=== PATIENT | male | born 1975 | race Caucasian/White ===

== ENCOUNTER 2023-12-26 14:33 | Inpatient (IN) | payer BC ==
[2023-12-26 15:41] VITALS: BMI 23.1
[2023-12-26] MEDS ORDERED: MAGNESIUM HYDROX 2400MG/30ML ORAL SUSPENSION 30 ML CUP PO PRN (17:04)
[2023-12-26] MEDS ORDERED: P-EPHED 60MG/TRIPROLIDI 2.5MG TABLET PO PRN (17:04)
[2023-12-26] MEDS ORDERED: hydrOXYzine PAMOATE 25 MG CAPSULE (FP) PO PRN (17:04)
[2023-12-26] MEDS ORDERED: POLYETHYLENE GLYCOL (HEALTHYLAX) 3350 17 GM PACKET PO PRN (17:04)
[2023-12-26] MEDS ORDERED: IBUPROFEN 400 MG TABLET (FP) PO PRN (17:04)
[2023-12-26] MEDS ORDERED: ACETAMINOPHEN 325 MG TABLET (FP) PO PRN (17:04)
[2023-12-26] MEDS ORDERED: IBUPROFEN 600 MG TABLET (FP) PO PRN (17:04)
[2023-12-26] MEDS ORDERED: BENZOCAINE/MENTHOL (CHLORASEPTIC ) LOZENGE MM PRN (17:04)
[2023-12-26] MEDS ORDERED: guaiFENesin 600 MG TABLET.ER (FP) PO PRN (17:04)
[2023-12-26] MEDS ORDERED: ONDANSETRON *ODT* 4 MG TABLET SL PRN (17:04)
[2023-12-26] MEDS ORDERED: BENZONATATE 200 MG CAPSULE PO PRN (17:04)
[2023-12-26] MEDS ORDERED: NALOXONE HCL (KLOXXADO) 8 MG SPRAY NS PRN (17:04)
[2023-12-26] MEDS ORDERED: DICYCLOMINE HCL 10 MG CAPSULE PO PRN (17:04)
[2023-12-26] MEDS ORDERED: LOPERAMIDE HCL 2 MG CAPSULE PO PRN (17:04)
[2023-12-26] MEDS ORDERED: MAG HYDROX/AL HYDROX/SIMETH 30 ML UNIT-DOSE CUP PO PRN (17:04)
[2023-12-26] MEDS ORDERED: NALOXONE HCL 0.4 MG/ML VIAL IM PRN (17:04)
[2023-12-26] MEDS ORDERED: NICOTINE POLACRILEX 2 MG GUM BUC PRN (17:04)
[2023-12-26] MEDS: THIAMINE HCL 100 MG TABLET (FP) PO SCH (22:22)
[2023-12-26] MEDS: MELATONIN 5 MG TABLETS PO SCH (22:22)
[2023-12-26] MEDS: METHOCARBAMOL 500 MG TABLET PO PRN (22:22)
[2023-12-26] MEDS: BISMUTH SUBSALICYLATE 524 MG/30 ML PO PRN (23:37)
[2023-12-27] MEDS ORDERED: methaDONE HCL 10 MG TABLET (FOR DETOX USE ONLY) PO ONE ×2 (01:00→10:00)
[2023-12-27 10:09] LABS: HEMATOCRIT 36.7 % (35.4-49); HEMOGLOBIN 12.6 GM/dL (11.7-16.9); MCH 33.4 pg (25.7-33.7); MCHC 34.2 g/dl (32.0-35.9); MEAN CELL VOLUME 97.6 fl (80-96); MEAN PLT VOLUME 7.3 fl (7.5-11.1); PLATELET COUNT 441 10^3/uL (134-434); RBC 3.76 M/mm3 (4.00-5.60); RDW 13.6 % (11.9-15.9); WHITE BLOOD COUNT 8.5 K/mm3 (4.0-10.0)
[2023-12-27] MEDS: PRENATAL VITAMINS W/ FOLIC ACID TABLET (FP) PO SCH (10:12)
[2023-12-27] MEDS: METHOCARBAMOL 500 MG TABLET PO PRN ×2 (10:15→22:13)
[2023-12-27 10:33] LABS: POTASSIUM 3.7 mmol/L (3.5-5.1)
[2023-12-27 10:38] LABS: CALCIUM 8.1 mg/dL (8.5-10.1)
[2023-12-27 10:39] LABS: ALBUMIN 3.1 g/dl (3.4-5.0); BLOOD UREA NITROGEN 7.5 mg/dL (7-18)
[2023-12-27 10:42] LABS: CREATININE 0.8 mg/dL (0.55-1.3)
[2023-12-27 10:43] LABS: BILIRUBIN,TOTAL 0.4 mg/dL (0.2-1); TOT PROT 6.5 g/dl (6.4-8.2)
[2023-12-27] MEDS: THIAMINE HCL 100 MG TABLET (FP) PO SCH (22:13)
[2023-12-27] MEDS: MELATONIN 5 MG TABLETS PO SCH (22:13)
[2023-12-28] MEDS: cloNIDine HCL 0.1 MG TABLET PO PRN ×2 (04:05→10:32)
[2023-12-28] MEDS: PRENATAL VITAMINS W/ FOLIC ACID TABLET (FP) PO SCH (10:04)
[2023-12-28] MEDS: SULFAMETHOXAZOLE/TRIMETHOPRIM 800MG/160MG D.S. TABLET PO SCH ×2 (10:04→22:32)
[2023-12-28] MEDS: BACITRACIN 0.9 GM PACKET TP SCH (10:04)
[2023-12-28] MEDS: BISMUTH SUBSALICYLATE 524 MG/30 ML PO PRN (10:07)
[2023-12-28] MEDS: METHOCARBAMOL 500 MG TABLET PO PRN ×2 (10:32→22:32)
[2023-12-28] MEDS: MELATONIN 5 MG TABLETS PO SCH (22:32)
[2023-12-28] MEDS: THIAMINE HCL 100 MG TABLET (FP) PO SCH (22:33)
[2023-12-29] MEDS ORDERED: SIMETHICONE 80 MG TAB.CHEW (FP) PO PRN (09:19)
[2023-12-29] MEDS ORDERED: methaDONE HCL 10 MG TABLET (FOR DETOX USE ONLY) PO ONE ×2 (10:00)
[2023-12-29] MEDS: METHOCARBAMOL 500 MG TABLET PO PRN (10:15)
[2023-12-29] MEDS: SULFAMETHOXAZOLE/TRIMETHOPRIM 800MG/160MG D.S. TABLET PO SCH ×2 (10:15→22:55)
[2023-12-29] MEDS: PRENATAL VITAMINS W/ FOLIC ACID TABLET (FP) PO SCH (10:15)
[2023-12-29] MEDS: BACITRACIN 0.9 GM PACKET TP SCH (10:17)
[2023-12-29] MEDS: cloNIDine HCL 0.1 MG TABLET PO PRN ×2 (10:19→22:56)
[2023-12-29] MEDS: VITAMINS A AND D TOPICAL OINTMENT 60 GM TUBE TP SCH ×4 (12:20→23:39)
[2023-12-29] MEDS ORDERED: guaiFENesin 200 MG/10 ML 10 ML UNIT-DOSE CUPS PO PRN (12:22)
[2023-12-29] MEDS ORDERED: MIRTAZAPINE 15 MG TABLET (FP) PO SCH (22:00)
[2023-12-29] MEDS: THIAMINE HCL 100 MG TABLET (FP) PO SCH (22:55)
[2023-12-29] MEDS: MELATONIN 5 MG TABLETS PO SCH (22:55)
[2023-12-30] MEDS: VITAMINS A AND D TOPICAL OINTMENT 60 GM TUBE TP SCH ×2 (06:07→12:00)
[2023-12-30] MEDS: SULFAMETHOXAZOLE/TRIMETHOPRIM 800MG/160MG D.S. TABLET PO SCH (10:07)
[2023-12-30] MEDS: METHOCARBAMOL 500 MG TABLET PO PRN (10:07)
[2023-12-30] MEDS: PRENATAL VITAMINS W/ FOLIC ACID TABLET (FP) PO SCH (10:07)
[2023-12-30] MEDS: BACITRACIN 0.9 GM PACKET TP SCH (10:08)
[2023-12-30 13:21] VITALS: BP 100/65; PULSE 84; RESP 16; TEMP 98.2
[2023-12-31] MEDS ORDERED: methaDONE HCL 10 MG TABLET (FOR DETOX USE ONLY) PO ONE (10:00)
== END 2023-12-30 14:39 | disposition left against medical advice (07) | DRG 770 ==
LOC: YASAS 14:33 → Y3N 18:04
PROVIDERS: ADMIT Allergy & Immunology; ATTEND Allergy & Immunology
PROC: HZ2ZZZZ Detoxification Services for Substance Abuse Treatment (ICD-10-PCS; principal; 2023-12-27)
DX: F11.23 Opioid dependence with withdrawal (principal); F14.20 Cocaine dependence, uncomplicated; F17.210 Nicotine dependence, cigarettes, uncomplicated; F41.8 Other specified anxiety disorders; G47.00 Insomnia, unspecified; K40.90 Unilateral inguinal hernia, without obstruction or gangrene, not specified as recurrent; S51.002D Unspecified open wound of left elbow, subsequent encounter; X58.XXXD Exposure to other specified factors, subsequent encounter; Z28.310 Unvaccinated for COVID-19; Z28.9 Immunization not carried out for unspecified reason; Z59.02 Unsheltered homelessness
CPT/HCPCS: 36415; 71045-TC-FY; 73070-TC-LT-FY; 80053; 85027; 86780; 87070; 87077; 87205; 87635; 87811; 93005; 93010

== ENCOUNTER 2024-08-11 10:57 | Inpatient (IN) | payer BC ==
[2024-08-11 11:41] VITALS: BMI 25.1
[2024-08-11] MEDS ORDERED: guaiFENesin 600 MG TABLET.ER (FP) PO PRN (14:05)
[2024-08-11] MEDS ORDERED: NICOTINE POLACRILEX 2 MG GUM BUC PRN (14:05)
[2024-08-11] MEDS ORDERED: NALOXONE HCL 0.4 MG/ML VIAL IM PRN (14:05)
[2024-08-11] MEDS ORDERED: ACETAMINOPHEN 325 MG TABLET (FP) PO PRN (14:05)
[2024-08-11] MEDS ORDERED: IBUPROFEN 400 MG TABLET (FP) PO PRN (14:05)
[2024-08-11] MEDS ORDERED: MAG HYDROX/AL HYDROX/SIMETH 30 ML UNIT-DOSE CUP PO PRN (14:05)
[2024-08-11] MEDS ORDERED: NALOXONE (NARCAN) HCL 4 MG/0.1 ML SPRAY NS PRN (14:05)
[2024-08-11] MEDS ORDERED: LOPERAMIDE HCL 2 MG CAPSULE PO PRN (14:05)
[2024-08-11] MEDS ORDERED: BENZOCAINE/MENTHOL (CHLORASEPTIC ) LOZENGE MM PRN (14:05)
[2024-08-11] MEDS ORDERED: IBUPROFEN 600 MG TABLET (FP) PO PRN (14:05)
[2024-08-11] MEDS ORDERED: POLYETHYLENE GLYCOL (HEALTHYLAX) 3350 17 GM PACKET PO PRN (14:05)
[2024-08-11] MEDS ORDERED: BENZONATATE 200 MG CAPSULE PO PRN (14:05)
[2024-08-11] MEDS: MAGNESIUM HYDROX 2400MG/30ML ORAL SUSPENSION 30 ML CUP PO PRN (15:19)
[2024-08-11] MEDS: hydrOXYzine PAMOATE 25 MG CAPSULE (FP) PO PRN (15:29)
[2024-08-11 15:51] VITALS: TEMP 97.8
[2024-08-11 18:28] LABS: PH,URINE 6.5 (5.0-8.0); URINE APPEARANCE CLEAR; URINE BILIRUBIN NEGATIVE (NEGATIVE); URINE COLOR YELLOW; URINE GLUCOSE (UA) NEGATIVE (NEGATIVE); URINE KETONE NEGATIVE (NEGATIVE); URINE LEUK ESTERASE NEGATIVE (NEGATIVE); URINE NITRITE NEGATIVE (NEGATIVE); URINE PROTEIN NEGATIVE (NEGATIVE)
[2024-08-11] MEDS: THIAMINE 100 MG TABLET PO SCH (21:12)
[2024-08-11] MEDS: MELATONIN 5 MG TABLETS PO SCH (21:12)
[2024-08-12 06:23] VITALS: BP 120/79; PULSE 71; RESP 18
[2024-08-12] MEDS: PRENATAL VITAMINS W/ FOLIC ACID TABLET (FP) PO SCH (09:52)
[2024-08-12] MEDS: NICOTINE 14 MG/24 HOURS TOPICAL PATCH TD SCH (09:53)
[2024-08-12 11:40] LABS: CHLORIDE 102 mmol/L (98-107); POTASSIUM 4.6 mmol/L (3.5-5.1); SODIUM 138 mmol/L (136-145)
[2024-08-12 11:46] LABS: ALBUMIN 3.7 g/dl (3.4-5.0); ANION GAP 8 mmol/L (4-13); BLOOD UREA NITROGEN 11.7 mg/dL (7-18); CALCIUM 9.2 mg/dL (8.5-10.1); CO2 28 mmol/L (21-32); GLUCOSE,RANDOM 137 mg/dL (74-106)
[2024-08-12 11:49] LABS: CREATININE 0.9 mg/dL (0.55-1.3); SGOT/AST 19 U/L (15-37); SGPT/ALT 21 U/L (13-61)
[2024-08-12 11:50] LABS: BILIRUBIN,TOTAL 0.5 mg/dL (0.2-1)
[2024-08-12 11:51] LABS: TOT PROT 6.9 g/dl (6.4-8.2)
[2024-08-12 11:52] LABS: ALK PHOS 72 U/L (45-117)
[2024-08-12 12:04] LABS: HEMATOCRIT 36.9 % (35.4-49); HEMOGLOBIN 12.4 GM/dL (11.7-16.9); MCH 32.7 pg (25.7-33.7); MCHC 33.6 g/dl (32.0-35.9); MEAN CELL VOLUME 97.3 fl (80-96); MEAN PLT VOLUME 7.2 fl (7.5-11.1); PLATELET COUNT 405 10^3/uL (134-434); RBC 3.79 M/mm3 (4.00-5.60); RDW 14.5 % (11.9-15.9); WHITE BLOOD COUNT 8.6 K/mm3 (4.0-10.0)
[2024-08-12] MEDS ORDERED: MIRTAZAPINE 30 MG TABLET PO SCH (22:00)
== END 2024-08-12 12:55 | disposition home or self-care (01) | DRG 772 ==
LOC: YASAS 10:57 → Y3NR 14:31
PROVIDERS: ADMIT Allergy & Immunology; ATTEND Psychiatry & Neurology Pain Medicine
PROC: HZ42ZZZ Group Counseling for Substance Abuse Treatment, Cognitive-Behavioral (ICD-10-PCS; principal; 2024-08-11)
DX: F11.20 Opioid dependence, uncomplicated (principal); F14.20 Cocaine dependence, uncomplicated; F12.20 Cannabis dependence, uncomplicated; F17.210 Nicotine dependence, cigarettes, uncomplicated; F32.A Depression, unspecified; F41.9 Anxiety disorder, unspecified; G47.00 Insomnia, unspecified; Z56.0 Unemployment, unspecified; Z59.00 Homelessness unspecified
CPT/HCPCS: 36415; 80053; 80305; 80307; 81003; 85027; 86780; 87811; 93005; 93010

== ENCOUNTER 2024-08-12 13:06 | Inpatient (IN) | payer BC ==
[2024-08-12] MEDS ORDERED: IBUPROFEN 400 MG TABLET (FP) PO PRN (13:17)
[2024-08-12] MEDS ORDERED: POLYETHYLENE GLYCOL (HEALTHYLAX) 3350 17 GM PACKET PO PRN (13:17)
[2024-08-12] MEDS ORDERED: NALOXONE HCL 0.4 MG/ML VIAL IM PRN (13:17)
[2024-08-12] MEDS ORDERED: LOPERAMIDE HCL 2 MG CAPSULE PO PRN (13:17)
[2024-08-12] MEDS ORDERED: BENZONATATE 200 MG CAPSULE PO PRN (13:17)
[2024-08-12] MEDS ORDERED: NALOXONE (NARCAN) HCL 4 MG/0.1 ML SPRAY NS PRN (13:17)
[2024-08-12] MEDS ORDERED: BISMUTH SUBSALICYLATE 524 MG/30 ML PO PRN (13:17)
[2024-08-12] MEDS ORDERED: guaiFENesin 600 MG TABLET.ER (FP) PO PRN (13:17)
[2024-08-12] MEDS ORDERED: BENZOCAINE/MENTHOL (CHLORASEPTIC ) LOZENGE MM PRN (13:17)
[2024-08-12] MEDS ORDERED: MAG HYDROX/AL HYDROX/SIMETH 30 ML UNIT-DOSE CUP PO PRN (13:17)
[2024-08-12] MEDS ORDERED: ACETAMINOPHEN 325 MG TABLET (FP) PO PRN (13:17)
[2024-08-12] MEDS ORDERED: MAGNESIUM HYDROX 2400MG/30ML ORAL SUSPENSION 30 ML CUP PO PRN (13:17)
[2024-08-12] MEDS ORDERED: DICYCLOMINE HCL 10 MG CAPSULE PO PRN (13:17)
[2024-08-12] MEDS ORDERED: ONDANSETRON *ODT* 4 MG TABLET SL PRN (13:17)
[2024-08-12] MEDS: cloNIDine HCL 0.1 MG TABLET PO SCH (13:42)
[2024-08-12] MEDS: methaDONE HCL 10 MG TABLET PO ONE (13:42)
[2024-08-12] MEDS: METHOCARBAMOL 500 MG TABLET PO PRN (13:42)
[2024-08-12] MEDS: GABAPENTIN 100 MG CAPSULE PO ONE (17:39)
[2024-08-12] MEDS: buPROPion HCL 75 MG TABLET PO SCH (17:48)
[2024-08-12] MEDS ORDERED: MIRTAZAPINE 15 MG TABLET (FP) ONE (21:27)
[2024-08-12] MEDS ORDERED: MIRTAZAPINE 30 MG TABLET PO SCH (22:00)
[2024-08-12] MEDS: MELATONIN 5 MG TABLETS PO SCH (22:08)
[2024-08-12] MEDS: THIAMINE 100 MG TABLET PO SCH (22:09)
[2024-08-12] MEDS: GABAPENTIN 100 MG CAPSULE PO SCH (22:09)
[2024-08-12] MEDS: MIRTAZAPINE 30 MG TABLET PO SCH (22:09)
[2024-08-13] MEDS ORDERED: methaDONE HCL 40 MG DISPERSABLE TABLET PO ONE (10:00)
[2024-08-13] MEDS: methaDONE HCL 10 MG TABLET PO ONE (10:01)
[2024-08-13] MEDS: PRENATAL VITAMINS W/ FOLIC ACID TABLET (FP) PO SCH (10:01)
[2024-08-13] MEDS ORDERED: MIRTAZAPINE 15 MG TABLET (FP) ONE (21:07)
[2024-08-13] MEDS ORDERED: buPROPion HCL 75 MG TABLET PO SCH (22:00)
[2024-08-14] MEDS ORDERED: cloNIDine HCL 0.1 MG TABLET PO PRN
[2024-08-14] MEDS: IBUPROFEN 600 MG TABLET (FP) PO PRN (01:20)
[2024-08-14] MEDS ORDERED: methaDONE HCL 40 MG DISPERSABLE TABLET PO ONE (10:00)
[2024-08-14] MEDS ORDERED: MIRTAZAPINE 15 MG TABLET (FP) ONE (21:50)
[2024-08-14] MEDS: BENZOCAINE 20 % GEL TUBE MM PRN (22:25)
[2024-08-15] MEDS ORDERED: methaDONE HCL 40 MG DISPERSABLE TABLET PO ONE (10:00)
[2024-08-15] MEDS: methaDONE HCL 40 MG DISPERSABLE TABLET PO ONE (10:20)
[2024-08-15] MEDS ORDERED: MIRTAZAPINE 15 MG TABLET (FP) ONE (21:34)
[2024-08-16] MEDS: methaDONE HCL 40 MG DISPERSABLE TABLET PO ONE ×2 (09:29→10:16)
[2024-08-16] MEDS: methaDONE HCL 10 MG TABLET PO ONE (10:18)
[2024-08-16] MEDS: hydrOXYzine PAMOATE 25 MG CAPSULE (FP) PO PRN (21:49)
[2024-08-17] MEDS ORDERED: methaDONE 40 MG, methaDONE 20 MG PO ONE (09:00)
[2024-08-17] MEDS: methaDONE 40 MG, methaDONE 20 MG PO ONE (09:39)
[2024-08-17] MEDS ORDERED: methaDONE HCL 40 MG DISPERSABLE TABLET PO ONE ×2 (10:00)
[2024-08-17] MEDS: BENZOCAINE 20 % GEL TUBE MM PRN (19:06)
[2024-08-17] MEDS: NAPROXEN 500 MG TABLET PO ONE (19:38)
[2024-08-17] MEDS ORDERED: MIRTAZAPINE 15 MG TABLET (FP) ONE (21:41)
[2024-08-18] MEDS: NAPROXEN 500 MG TABLET PO SCH (07:14)
[2024-08-18 09:10] VITALS: PULSE 90; RESP 18
[2024-08-18] MEDS: methaDONE 40 MG, methaDONE 20 MG PO SCH (09:15)
[2024-08-18] MEDS ORDERED: methaDONE HCL 10 MG TABLET PO SCH (10:00)
[2024-08-18 17:02] VITALS: BP 137/83; TEMP 96.9
== END 2024-08-18 17:58 | disposition other institution (70) | DRG 773 ==
LOC: YASAS 13:06 → Y3N 13:07
PROVIDERS: ADMIT Allergy & Immunology; ATTEND Surgery
PROC: HZ2ZZZZ Detoxification Services for Substance Abuse Treatment (ICD-10-PCS; principal; 2024-08-12)
DX: F11.20 Opioid dependence, uncomplicated (principal); F14.20 Cocaine dependence, uncomplicated; F12.20 Cannabis dependence, uncomplicated; F17.210 Nicotine dependence, cigarettes, uncomplicated; F32.A Depression, unspecified; F41.9 Anxiety disorder, unspecified; G47.00 Insomnia, unspecified; Z59.00 Homelessness unspecified
CPT/HCPCS: 87811

== ENCOUNTER 2024-08-18 18:03 | Inpatient (IN) | payer BC ==
[2024-08-18 18:46] VITALS: BP 144/99; PULSE 78; RESP 18; TEMP 97.7
[2024-08-18] MEDS ORDERED: BENZONATATE 200 MG CAPSULE PO PRN (18:58)
[2024-08-18] MEDS ORDERED: ACETAMINOPHEN 325 MG TABLET (FP) PO PRN (18:58)
[2024-08-18] MEDS ORDERED: NALOXONE HCL 0.4 MG/ML VIAL IM PRN (18:58)
[2024-08-18] MEDS ORDERED: POLYETHYLENE GLYCOL (HEALTHYLAX) 3350 17 GM PACKET PO PRN (18:58)
[2024-08-18] MEDS ORDERED: IBUPROFEN 600 MG TABLET (FP) PO PRN (18:58)
[2024-08-18] MEDS ORDERED: MAGNESIUM HYDROX 2400MG/30ML ORAL SUSPENSION 30 ML CUP PO PRN (18:58)
[2024-08-18] MEDS ORDERED: guaiFENesin 600 MG TABLET.ER (FP) PO PRN (18:58)
[2024-08-18] MEDS ORDERED: MAG HYDROX/AL HYDROX/SIMETH 30 ML UNIT-DOSE CUP PO PRN (18:58)
[2024-08-18] MEDS ORDERED: IBUPROFEN 400 MG TABLET (FP) PO PRN (18:58)
[2024-08-18] MEDS ORDERED: LOPERAMIDE HCL 2 MG CAPSULE PO PRN (18:58)
[2024-08-18] MEDS ORDERED: NALOXONE (NARCAN) HCL 4 MG/0.1 ML SPRAY NS PRN (18:58)
[2024-08-18] MEDS ORDERED: hydrOXYzine PAMOATE 25 MG CAPSULE (FP) PO PRN (18:58)
[2024-08-18] MEDS ORDERED: BENZOCAINE/MENTHOL (CHLORASEPTIC ) LOZENGE MM PRN (18:58)
[2024-08-18] MEDS ORDERED: MELATONIN 5 MG TABLETS PO SCH (22:00)
[2024-08-18] MEDS ORDERED: THIAMINE 100 MG TABLET PO SCH (22:00)
[2024-08-19] MEDS ORDERED: methaDONE HCL 10 MG TABLET PO SCH (06:00)
[2024-08-19] MEDS ORDERED: PRENATAL VITAMINS W/ FOLIC ACID TABLET (FP) PO SCH (10:00)
== END 2024-08-18 20:50 | disposition left against medical advice (07) | DRG 770 ==
LOC: YASAS 18:03 → Y3W 18:05
PROVIDERS: ADMIT Allergy & Immunology; ATTEND Psychiatry & Neurology Pain Medicine
PROC: HZ42ZZZ Group Counseling for Substance Abuse Treatment, Cognitive-Behavioral (ICD-10-PCS; principal; 2024-08-18)
DX: F11.20 Opioid dependence, uncomplicated (principal); F14.20 Cocaine dependence, uncomplicated; F12.20 Cannabis dependence, uncomplicated; F17.210 Nicotine dependence, cigarettes, uncomplicated; F32.A Depression, unspecified; F41.9 Anxiety disorder, unspecified; G47.00 Insomnia, unspecified; Z59.00 Homelessness unspecified